=== PATIENT | male | born 1980 | race Caucasian/White ===

== ENCOUNTER 2017-06-18 17:27 | Emergency (ER) | payer OTHER ==
[~2017-06-18] VITALS: Ht 185.4 cm; Wt 83.7 kg
[2017-06-18] MEDS ORDERED: NAPROSYN500 MG PO (20:02)
[2017-06-18] MEDS ORDERED: FLEXERIL10 MG PO (20:02)
[2017-06-18 20:18] VITALS: BP 124/84
== END 2017-06-18 20:20 | disposition home or self-care (01) ==
LOC: EME → EDBD 17:27 → EME 20:20
DX: S16.1XXA Strain of muscle, fascia and tendon at neck level, initial encounter (principal); M54.12 Radiculopathy, cervical region; V49.40XA Driver injured in collision with unspecified motor vehicles in traffic accident, initial encounter; F17.200 Nicotine dependence, unspecified, uncomplicated
CPT/HCPCS: 72125; 73030; 99281; 99284